=== PATIENT | male | born 1995 | race Caucasian/White ===

== ENCOUNTER 2019-01-03 09:48 | Emergency (ER) | payer SELFPAY ==
[2019-01-03] MEDS: ONDANSETRON (ODT) 4 MG TAB ODT (11:41)
[2019-01-03] MEDS: LIDOCAINE 1% (MDV) 20 ML INJ SC (11:44)
[2019-01-03] MEDS: HYDROmorphONE 2 MG/ML SYG IM (11:44)
== END 2019-01-03 12:51 | disposition home or self-care (01) ==
LOC: FTE 09:48
DX: L02.212 Cutaneous abscess of back [any part, except buttock and flank] (principal)
CPT/HCPCS: 10060; 96372; 99284-25